=== PATIENT | female | born 1960 | race Caucasian/White ===

== ENCOUNTER → 2019-10-20 17:06 | Outpatient (CLI) | payer OTHER, SELFPAY ==
--- NOTE | 2019-10-20 17:12 | CT_ITS ---
HISTORY: SINUSITIS, MUFFLED HEARING TECHNIQUE: Helically acquired images were obtained of the facial bones without intravenous contrast. A radiation dose optimization technique was used for this scan. COMPARISON: None FINDINGS: # of images incl. paperwork: [phone] The patient has had bilateral maxillary sinus antrectomies. Minimal mucoperiosteal thickening is present within the left maxillary sinus. Nasal turbinates have been removed. Mucoperiosteal thickening is present within the ethmoid air cells extending up into the right frontal sinus. Minimal fluid layers within the left sphenoid sinus. The right mastoid air cells are free of disease. Fluid is present within many of the inferior left mastoid air cells. Some fluid is present within the left middle ear extending up to the tympanic membrane and the middle ear ossicles. No soft tissue masses are perceived. No osseous erosions are demonstrated. The mandible is normal. The cervical spine demonstrates some facet arthropathy. CT/Sinus/Facial Bone IMPRESSION: Left mastoid air cell disease. Fluid and fluid with left mastoid air cells is present within the left middle ear abutting the tympanic membrane, the oval window, and the middle ear ossicles. No pathology of the cochlea or vestibular system is perceived. Previous paranasal sinus surgeries with mucoperiosteal thickening and fluid within some of the paranasal sinuses. Individualized dose optimization techniques were used for this CT. at 0604 Reported and signed by: Jose Antonio Olivia MD Electronically Signed: Jose Antonio Olivia MD at 6:03 EST Tel , Service support ,
== END ==
PROVIDERS: Family Provider Family Medicine; PCP Family Medicine; Referring Provider Otolaryngology; Visit Provider Otolaryngology
DX: J32.9 Chronic sinusitis, unspecified (principal)
CPT/HCPCS: 70486

== ENCOUNTER → 2019-10-30 16:08 | Outpatient (CLI) | payer OTHER, SELFPAY | PROVIDERS: Family Provider Family Medicine; PCP Family Medicine; Referring Provider Otolaryngology; Visit Provider Otolaryngology | DX: J32.9 Chronic sinusitis, unspecified (principal) | CPT/HCPCS: 87070; 87186; 87205 ==

== ENCOUNTER → 2019-12-11 | Outpatient (CLI) | payer OTHER, SELFPAY | END | disposition home or self-care (01) | PROVIDERS: PCP Family Medicine; Referring Provider Otolaryngology; Visit Provider Otolaryngology | DX: J32.9 Chronic sinusitis, unspecified (principal) | CPT/HCPCS: 87070; 87077; 87186; 87205 ==

== ENCOUNTER → 2024-09-18 | Outpatient (CLI) | payer MEDICARE, SELFPAY ==
--- NOTE | 2024-09-18 10:11 | RAD_ITS ---
STUDY: X-RAY - LEFT FOOT CLINICAL: Female, 64 years old. OSTEOARTHRITIS TECHNIQUE: 3 views of the left foot. COMPARISON: None. FINDINGS: Intact talus, calcaneus, and tarsal bones. There is a plantar calcaneal spur. There is mild navicular-medial cuneiform arthrosis. Normal visualized subtalar, talonavicular, calcaneocuboid, and tarsometatarsal articulations. Normal metatarsi. Normal metatarsophalangeal joint of the great toe. Normal tibial and fibular sesamoid bones. Normal interphalangeal joint of the great toe. Normal phalanges of the great toe. Normal second through fifth metatarsophalangeal joints. Normal interphalangeal joints and phalanges of the lesser toes. The soft tissue structures are unremarkable. There is no demonstrated fracture. RAD/Foot min 3 Views IMPRESSION: Mild navicular-medial cuneiform arthrosis. Plantar calcaneal spur. No demonstrated fracture. Electronically Signed: Niranjan Green MD at 16:01 EST ,
--- NOTE | 2024-09-18 10:20 | RAD_ITS ---
STUDY: X-RAY - RIGHT FOOT CLINICAL: Female, 64 years old. OSTEOARTHRITIS TECHNIQUE: 3 views of the right foot. COMPARISON: None. FINDINGS: Intact talus, calcaneus, and tarsal bones. There is a plantar calcaneal spur. There is mild navicular-cuneiform degenerative arthrosis. Normal visualized subtalar, talonavicular, calcaneocuboid, and tarsometatarsal articulations. Normal metatarsi. There is moderate to severe degenerative arthrosis of the metatarsophalangeal joint of the hallux. Normal tibial and fibular sesamoid bones. Normal interphalangeal joint of the great toe. Normal phalanges of the great toe. Normal second through fifth metatarsophalangeal joints. Normal interphalangeal joints and phalanges of the lesser toes. The soft tissue structures are unremarkable. There is no demonstrated fracture. RAD/Foot min 3 Views IMPRESSION: Mild navicular-cuneiform degenerative arthrosis. Moderate to severe degenerative arthrosis at the first MTP joint. Plantar calcaneal spur. No demonstrated fracture. Electronically Signed: Niranjan Green MD at 16:03 EST ,
[2024-09-18 12:22] LABS: Erythrocyte Sedimentation Rate 1 mm/hr (0-30)
[2024-09-18 12:26] LABS: Absolute Lymphocyte Count 1.26 X10^3/uL (0.83-4.51); Absolute Neutrophil Count 3.6 X10^3/uL (2.0-7.7); Basophil# 0.06 X10^3/uL; Basophil% 1.1 % (0-1); Eosinophils% 3.6 % (0-5); Hematocrit 43.6 % (37-47); Hemoglobin 15.2 g/dL (12.0-15.0); Lymphocyte # 1.26 X10^3/ul (0.83-4.51); Lymphocyte % 22.6 % (19-41); Mean Corp Hgb Conc 34.9 g/dL (32-36); Mean Corpuscular Hgb 33.3 pg (27.0-32.0); Mean Corpuscular Volume 95.6 fL (81-99); Mean Platelet Vol. 11.7 fl (6.2-12.0); Monocyte# 0.42 X10^3/uL; Monocyte% 7.5 % (0-10); NRBC Flagged by Analyzer 0 % (0-5); Neutrophil # 3.63 X10^3/uL (2.7-7.7); Platelet Count 261 K/mm3 (150-450); RBC Distribution Width CV 12.5 % (11.6-14.6); RBC Distribution Width SD 44.3 fl (35.1-43.9); Red Blood Count 4.56 M/mm3 (4.2-5.4); White Blood Count 5.6 K/mm3 (4.4-11.0)
[2024-09-18 13:27] LABS: Hepatitis B Surface Antibody Non-Reactive; Hepatitis B Surface Antigen Non-Reactive (Nonreactive); Hepatitis C Antibody Non-Reactive (Nonreactive)
[2024-09-18 21:52] LABS: ALB/GLOB Ratio 1.4 RATIO (0.9-2.4); AST(SGOT) 22 U/L (15-37); Alanine Aminotransfer ALT/SGPT 31 U/L (13-56); Albumin, Serum 4.2 g/dL (3.2-5.0); Alkaline Phosphatase 76 U/L (45-117); Anion Gap 5 (5-15); BUN 13 mg/dL (7-18); BUN/Creat Ratio 18.3 RATIO (10-20); CRP < 2.90 mg/L (0.0-3.0); Calcium,Total 9.3 mg/dL (8.5-10.1); Chloride 107 mmol/L (98-107); Creatinine, Serum 0.71 mg/dL (0.55-1.02); EST Glomerular Filtration Rate 88 mL/min (>60); Est Glom Filt Rate - Afr Amer 106 mL/min (>60); Globulin 2.9 g/dL (2.2-4.2); Glucose 95 mg/dL (74-106); Potassium 4.1 mmol/L (3.5-5.1); Protein, Total 7.1 g/dL (6.4-8.2); Rheumatoid Factor < 10.0 IU/mL (<15); Sodium Level 140 mmol/L (136-145)
[2024-09-19 14:10] LABS: ANTINUCLEAR ANTIBODIES DIRECT Negative (Negative)
[2024-09-19 15:09] LABS: CCP IgG Antibodies 7 units (0-19)
== END | disposition home or self-care (01) ==
PROVIDERS: PCP Family Medicine; Referring Provider Internal Medicine Rheumatology; Visit Provider Internal Medicine Rheumatology
DX: M06.4 Inflammatory polyarthropathy (principal); M17.0 Bilateral primary osteoarthritis of knee
CPT/HCPCS: 36415; 73630; 80053; 85025; 85652; 86038; 86140; 86200; 86431; 86706; 86803; 87340